=== PATIENT | female | born 2005 | race Caucasian/White ===

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

== ENCOUNTER 2023-09-21 17:40 | Emergency (ER) | payer OTHER, SELFPAY ==
[2023-09-21 18:02] VITALS: BP 116/66; PULSE 78; RESP 16; TEMP 36.4; O2SAT 100; BMI 37.3
--- NOTE | 2023-09-21 18:03 | ED.NAVMDI ---
HPI - Nausea/Vomiting/Diarrhea General Chief complaint: Nausea/Vomiting/Diarrhea Stated complaint: food poisonings t-1?vomiting Time Seen by Provider: 09/21/23 19:28 Source: patient Mode of arrival: ambulatory Limitations: no limitations History of Present Illness HPI Narrative: 18 year old female with no significant pmhx presents to the ED today for evaluation of nausea, vomiting, diarrhea, and abdominal cramping that began last night after eating out at a restaurant. Admits to eating a lot of seafood . Began feeling nauseous early this morning. Endorses associated vomiting, diarrhea and occasional abdominal cramping. Taking pepto bismol without relief. Denies chance of . Denies recent travel. Denies known sick contacts. Denies fever, chills, flank pain, dysuria, hematuria. Related Data Previous Rx's ?Medication ?Instructions ?Recorded ciprofloxacin HCl 500 mg tablet 500 mg PO Q12H 7 days #14 tabs 12/14/20 fluconazole 150 mg tablet 150 mg PO Q3D fungal infection 6 12/14/20 (Diflucan) days #2 tabs metronidazole 500 mg tablet 500 mg PO BID 7 days #14 tabs 12/14/20 (Flagyl) loperamide 2 mg tablet (Imodium 2 mg PO Q4H PRN loose stool #10 09/21/23 A-D) tabs ondansetron 4 mg disintegrating 4 mg PO DAILY PRN nausea and 09/21/23 tablet vomiting 5 days #14 tabs Allergies Allergy/AdvReac Type Severity Reaction Status Date / Time shrimp Allergy Hives Verified 09/21/23 18:03 Review of Systems Review of Systems: Constitutional: No fever, chills, fatigue, night sweats, weight changes ENT/Mouth: No ear pain, hearing loss, nasal congestion, sinus pain, rhinorrhea, sore throat Eyes: No eye pain, swelling, redness, vision changes, discharge Cardio: No chest pain, palpitations, WILSON, orthopnea, peripheral edema Pulm: No SOB, cough, sputum, wheezing, dyspnea, hemoptysis GI: No hematemesis, constipation, hematochezia, melena, +nausea, +vomiting, +diarrhea, +abd cramping : No irregular bleeding, dysuria, frequency, urgency, hesitancy, hematuria, flank pain, urinary flow changes, urinary incontinence or retention MSK: No back pain, neck pain, joint pain, myalgias Skin: No lesions, rashes Neuro: No weakness, numbness, paresthesias, LOC, dizziness, headache Psych: No anxiety/panic, depression, SI/HI, AH/VH All other systems reviewed and are negative. [facility] Past Medical History Attestation statement: The following information was validated with the patient. Source: old records reviewed and nursing notes reviewed Medical History No known health problems Social History Social History Advance Directives: No Advance Directives Information Provided: No Physical Exam Vital Signs: Vital Signs: Last Vital Signs Temp 97.9 F 09/21/23 20:44 Pulse 75 09/21/23 20:44 Resp 16 09/21/23 20:44 BP 120/78 09/21/23 20:44 Pulse Ox 100 09/21/23 20:44 O2 Del Method Room Air 09/21/23 20:44 BMI result Body Mass Index 37.3 vital signs stable, afebrile Const: General: cooperative, healthy appearing, comfortable and no acute distress Orientation/consciousness: patient oriented x3 Limitations: no limitations HEENT: Head: Yes normal to inspection, Yes No palpable skull fracture present, Yes normocephalic and Yes atraumatic Eyes: General: appearance normal, both eyes and all related structures Conjunctivae: conjunctivae normal Sclerae: sclerae normal Pupils: Equal, round and reactive pupils present Neck: Neck: Yes normal visual inspection and Yes no lymphadenopathy Resp: Effort & Inspection: normal respiratory effort and able to speak in complete sentences Auscultation: clear to auscultation bilaterally Cardio: Rate: regular rate Rhythm: regular rhythm GI: Other: + abd soft, NT/ND, no rebound tenderness of guarding, normoactive bs x4. : General: Yes no CVA tenderness Back/Spine/Pelvis: Back: no CVA tenderness Skin: General skin exam: no rashes or lesions noted Neuro: General: patient oriented x3 and gait normal Cranial nerves: Yes Equal, round and reactive pupils present Course Course Course Narrative: This is an RME: Additional HPI, ROS, PE not included below will be deferred to primary provider. Patient is a 18-year-old presents emergency department for evaluation nausea vomiting lower abdominal cramping after eating seafood at a restaurant last night. Took ibuprofen Pepto-Bismol, without much improvement. Plan: Labs, viral panel, urinalysis, Zofran Reevaluation(s) Reevaluation #1: 2034-- CBC without leukocytosis or anemia. Chemistry does not exhibit electrolyte abnormality requiring intervention. normal renal function. No concerns for acute dehydration. Urine without infection. Negative . COVID/FLU/RSV negative. > patient has had no further vomiting in ED since recieving zofran. no episodes of diarrhea. I offered to obtain stool GI panel, explaining to her the data that we could obtain from this however patient is declining at this time and states that she would just like to go home. She likely has gastroenteritis vs food poisoning. tolerating PO. Will send zofran and imodium to pharmacy. Patient has remained stable throughout ED visit today. Discussed worrisome signs and symptoms and when to return to the ED. All questions answered at this time. Patient is agreeable with disposition and stable for discharge. Medications Administered Discontinued Medications Generic Name Dose Route Start Last Admin Trade Name Freq PRN Reason Stop Dose Admin Ondansetron HCl 4 mg 09/21/23 18:05 09/21/23 19:51 Ondansetron Odt 4 Mg Tab.Rapdis TRANSLINGU 09/21/23 18:06 Not Given ONCE ONE Medical Decision Making Medical Decision Making [facility] Narrative: 18 year old female with no significant pmhx presents to the ED today for evaluation of nausea, vomiting, diarrhea, and abdominal cramping that began last night after eating out at a restaurant. Vital signs stable. Afebrile. she is nontoxic appearing and in NAD. no cvat b/l. skin warm, dry, intact. abd soft, NT/ND, no rebound tenderness of guarding, normoactive bs x4. Differential diagnosis includes gastroenteritis, viral syndrome, food poisoning. unlikely UTI, pyelo, hydronephrosis. Plan for labs, zofran, viral swabs, UA, and re-evaluation. Differential Diagnosis Differential Diagnoses: The differential diagnosis associated with the presentation includes as above Admission/Observation not indicated Lab Data [facility] Lab Attestation statement: I reviewed the patient's lab results. as above. 09/21/23 18:15 09/21/23 18:15 Labs: Lab Results 09/21/23 Range/Units 18:15 WBC 7.9 (4.8-10.8) X10*3/uL RBC 4.27 (4.20-5.50) X10*6/uL Hgb 11.8 L (12.0-16.0) g/dl Hct 36.2 L (37.0-47.0) % MCV 84.8 (80.0-98.0) fL MCH 27.6 (27.0-33.0) pg MCHC 32.6 (31.0-35.0) g/dl RDW 14.9 (11.0-16.0) % Plt Count 284 (160-400) X10*3/uL MPV 11.7 (9.4-12.3) fL Immature Gran % (Auto) 0.3 (0.0-0.4) % Neut % (Auto) 62.4 (45-73) % Lymph % (Auto) 28.0 (20-40) % [place] % (Auto) 7.2 (2-11) % Eos % (Auto) 1.6 (0-4) % Baso % (Auto) 0.5 (0-2) % Lymph # (Auto) 2.2 (1.2-4.9) X10*3/uL [place] # (Auto) 0.6 (0.1-1.2) X10*3/uL Eos # (Auto) 0.1 (0.0-0.4) X10*3/uL Baso # (Auto) 0.0 (0.0-0.2) X10*3/uL Abs Immat Gran (auto) 0.02 (0.00-0.03) X10*3/uL Absolute Neuts (auto) 5.0 (2.0-8.3) x10*3/uL Absolute Nucleated RBC 0.000 (0.0-0.012) X10*3/uL Nucleated RBC % (auto) 0.0 (0.0-0.2) /100WBC Sodium 141 (135-145) mmol/L Potassium 3.5 (3.3-5.1) mmol/L Chloride 111 H (96-108) mmol/L Carbon Dioxide 22 (22-29) mmol/L Anion Gap 12 (12-20) BUN 12 (9-16) mg/dL Creatinine 0.63 (0.5-1.4) mg/dL Estim Creat Clear Calc 174.3 Estimated GFR > 60 Random Glucose 94 (60-115) mg/dL Calcium 8.8 (8.4-10.2) mg/dL Total Bilirubin 0.2 (0.0-1.0) mg/dL AST 13 (5-31) U/L ALT 7 (0-31) U/L Alkaline Phosphatase 63 (39-117) U/L Total Protein 6.8 (6.5-8.0) g/dL Albumin 3.8 (3.5-5.0) g/dL Lipase 14 (8-78) U/L Beta HCG, Quant < 2 mIU/mL Urine Color Yellow Urine Appearance Clear Urine pH 6.0 (5.0-9.0) Ur Specific [place] >= 1.030 H (1.005-1.025) Urine Protein Negative (Neg-Trace) mg/dL Urine Glucose (UA) Negative (Negative) mg/dL Urine Ketones Trace (Negative) mg/dL Urine Blood Small (1+) H (Negative) Urine Nitrite Negative (Negative) Ur Leukocyte Esterase Negative (Negative) Urine RBC 0-2 (0-2) /HPF Urine WBC 0-5 (0-5) /HPF Ur Squamous Epith Cells 11-20 (0-2) /HPF Urine Bacteria 1+ (None Seen) Hyaline Casts 0-2 (0-2) /LPF Influenza Type A (PCR) NEGATIVE (Negative) Influenza Type B (PCR) NEGATIVE (Negative) RSV RNA Qual (PCR) NEGATIVE (Negative) SARS-CoV-2 RNA (RT-PCR) NEGATIVE (Negative) Prescription Management I considered prescription management with: Other (zofran, imodium) Social Determinants Patient?s care significantly limited by Social Determinants of Health including: Other Social Determinant of Health Critical Care Time Critical Care Time Critical Care Time: No Discharge Plan Discharge Clinical Impression: Gastroenteritis Patient Disposition: Home, Self-Care Instructions: Gastroenteritis (ED), Acute Diarrhea (ED) Additional Instructions: Your lab workup today was reassuring.? Your urine test was negative for infection and .? You declined sending a stool sample to the lab today. Your symptoms are most consistent with a viral stomach bug, also known as gastroenteritis.? The treatment for this is supportive care. Symptoms usually resolve on their own in 48-72 hours.? The recommendation is rest and lots of oral hydration.? Stick to a bland diet like soup and toast while you are not feeling well.? Zofran is an anti-nausea medication. This has been sent to your pharmacy for you to take as needed for nausea.? You can also try over the counter Pepto Bismol or Imodium as needed for upset stomach and diarrhea.? Follow up with your primary care provider as needed. If you develop new or worsening symptoms call 911 or come back to the ER for further evaluation. Prescriptions: New ondansetron 4 mg tablet,disintegrating 4 mg PO DAILY PRN (Reason: nausea and vomiting) 5 Days Qty: 14 0RF loperamide [Imodium A-D] 2 mg tablet 2 mg PO Q4H PRN (Reason: loose stool) Qty: 10 0RF Rx Instructions: administer after each loose stool until symptoms controlled; do not exceed 8 mg per 24 hrs No Action fluconazole [Diflucan] 150 mg tablet 150 mg PO Q3D 6 Days Qty: 2 0RF Rx Instructions: may repeat second dose 72 hrs after first dose if symptoms persist metronidazole [Flagyl] 500 mg tablet 500 mg PO BID 7 Days Qty: 14 0RF ciprofloxacin HCl 500 mg tablet 500 mg PO Q12H 7 Days Qty: 14 0RF Stand Alone Forms: Work/School Release Interventions: ED Discharge Assessment Last Done: 09/21/23 20:44 Discharge Date/Time: 09/21/23 20:45 Print Language: [place]
[2023-09-21 18:21] LABS: MANUAL DIFF FLAG NO
[2023-09-21 18:22] LABS: Basophils Percent Auto 0.5 % (0-2); Eosinophils Absolute Auto 0.1 X10*3/uL (0.0-0.4); Eosinophils Percent Auto 1.6 % (0-4); Hematocrit 36.2 % (37.0-47.0); Hemoglobin 11.8 g/dl (12.0-16.0); Imm Gran Abs Auto 0.02 X10*3/uL (0.00-0.03); Imm Gran Pct Auto 0.3 % (0.0-0.4); Lymphocytes Absolute Auto 2.2 X10*3/uL (1.2-4.9); Mean Corpuscular HGB Conc 32.6 g/dl (31.0-35.0); Mean Corpuscular Hemoglobin 27.6 pg (27.0-33.0); Mean Corpuscular Volume 84.8 fL (80.0-98.0); Mean Platelet Volume 11.7 fL (9.4-12.3); Monocytes Absolute Auto 0.6 X10*3/uL (0.1-1.2); Monocytes Percent Auto 7.2 % (2-11); Neutrophils Percent Auto 62.4 % (45-73); Platelet Count 284 X10*3/uL (160-400); Red Blood Count 4.27 X10*6/uL (4.20-5.50); Red Cell Distribution Width 14.9 % (11.0-16.0); White Blood Count 7.9 X10*3/uL (4.8-10.8)
[2023-09-21 18:23] LABS: Appearance Urine Clear; Color Urine Yellow; Glucose Urine UA Negative (Negative); Leukocyte Esterase Urine Negative (Negative); Nitrite Urine Negative (Negative); Specific Gravity - Urine >= 1.030 (1.005-1.025); UMIC TRIGGER UACC YES; Urine Blood Small (1+) (Negative); Urine Ketones Trace mg/dL (Negative); Urine Protein Negative (Neg-Trace)
[2023-09-21 18:36] LABS: Bacteria Urine 1+ (None Seen); Hyaline Casts Urine 0-2 /LPF (0-2); RBC Urine 0-2 /HPF (0-2); WBC Urine 0-5 /HPF (0-5)
[2023-09-21 18:42] LABS: Alanine Aminotransferase 7 U/L (0-31); Albumin Level 3.8 g/dL (3.5-5.0); Alkaline Phosphatase 63 U/L (39-117); Anion Gap 12 (12-20); Aspartate Amino Transferase 13 U/L (5-31); Bilirubin Total 0.2 mg/dL (0.0-1.0); Blood Urea Nitrogen 12 mg/dL (9-16); Calcium 8.8 mg/dL (8.4-10.2); Carbon Dioxide 22 mmol/L (22-29); Chloride 111 mmol/L (96-108); Creatinine Clr Calc Pharmacy 174.3; Estimated Glomerular Filt Rate > 60; Glucose Random 94 mg/dL (60-115); Lipase 14 U/L (8-78); Potassium 3.5 mmol/L (3.3-5.1); Sodium 141 mmol/L (135-145); Total Protein 6.8 g/dL (6.5-8.0)
[2023-09-21 18:48] LABS: HCG Quantitative < 2 mIU/mL
[2023-09-21 19:02] LABS: Influenza A PCR NEGATIVE (Negative); Influenza B PCR NEGATIVE (Negative); Resp Syncy Virus RNA Qual PCR NEGATIVE (Negative); SARS COV2 PCR INHOUSE NEGATIVE (Negative)
[2023-09-21 20:44] VITALS: BP 120/78; PULSE 75; RESP 16; TEMP 36.6; O2SAT 100
== END 2023-09-21 20:45 | disposition home or self-care (01) ==
PROVIDERS: Nurse Practitioner Family; Emergency Provider Emergency Medicine
DX: K52.9 Noninfective gastroenteritis and colitis, unspecified (principal)
CPT/HCPCS: 0241U; 80053; 81001; 83690; 84702; 85025; 99283